=== PATIENT | female | born 1975 | race Caucasian/White ===

== ENCOUNTER → 2020-06-29 14:33 | Outpatient (CLI) | payer OTHER, SELFPAY ==
--- NOTE | ~2020-06-29 | US_ITS ---
EXAMINATION: US thyroid DATE: 06/29/2020 14:49 INDICATION: Right thyroid nodule. TECHNIQUE: Multiple ultrasound images of the thyroid were obtained. COMPARISON: Ultrasound 03/31/2013, 08/05/13 FINDINGS: The right thyroid lobe measures 6.0 x 2.8 x 3.1 cm. The left thyroid lobe measures 3.5 x 1.2 x 1.1 c m. In the right thyroid lobe, there is a 3.3 cm mixed cystic and solid, isoechoic, usdky-qxxy-aido n odule with lobulated margin without echogenic foci (TI-RADS TR4), stable from 08/05/13, likely benign. In the left thyroid lobe, there is a 12 mm solid, isoechoic, kkski-thbi-nxvh nodule with ill-defined margin without echogenic foci (TR3), stable from 03/31/13. IMPRESSION: 1. Stable pulmonary nodules, likely benign. Reviewed, dictated and finalized at location A. [employer]
== END ==
PROVIDERS: Visit Provider Nurse Practitioner
DX: E04.2 Nontoxic multinodular goiter (principal)
CPT/HCPCS: 76536

== ENCOUNTER 2023-07-27 10:05 | Outpatient (CLI) | payer OTHER, SELFPAY ==
--- NOTE | ~2023-07-27 | US_ITS ---
Thyroid ultrasound. Clinical History: Thyroid nodule COMPARISON: 06/29/2020 Findings: Real-time sonography of the thyroid gland was performed. The right lobe measures 6.1 x 3.0 x 3.1 cm. The left lobe measures 4.2 x 1.5 x 1.2 cm. The isthmus is 2 mm in AP diameter. There is a 3.6 x 2.6 x 2.9 cm mixed solid and cystic nodule at the right midpole, unchanged. There is a probable 3 mm hypoechoic nodule at the left upper pole. Impression: No interval change in dominant mixed solid and cystic nodule at the right midpole. Small left thyroid lobe nodules are not as well-seen on the current exam, or else decreased. Reviewed, dictated and finalized at location . Impression: No interval change in dominant mixed solid and cystic nodule at the right midpo le. Small left thyroid lobe nodules are not as well-seen on the current exam, or el se decreased.
== END 2023-07-27 10:06 ==
PROVIDERS: PCP Nurse Practitioner; Visit Provider Nurse Practitioner
DX: E04.1 Nontoxic single thyroid nodule (principal)
CPT/HCPCS: 76536

== ENCOUNTER 2023-08-21 10:40 | Outpatient (CLI) | payer OTHER, SELFPAY | END 2023-08-21 10:41 | disposition home or self-care (01) | LOC: ANHAUDIO 10:41 | PROVIDERS: PCP Nurse Practitioner; Visit Provider Otolaryngology | DX: H90.3 Sensorineural hearing loss, bilateral (principal) | CPT/HCPCS: 92557; 92567 ==

== ENCOUNTER 2023-11-27 13:03 | Outpatient (CLI) | payer OTHER, SELFPAY ==
--- NOTE | ~2023-11-27 | MM_ITS ---
EXAMINATION: MM screening mirlande BI w abrahan HISTORY: Screening TECHNIQUE: Craniocaudal and mediolateral oblique 3-D tomosynthesis images were obtained and synthetic 2-D images were generated. CAD analysis was submitted and interpreted. COMPARISON: No prior mammogram is available for comparison at this institution. BREAST PARENCHYMAL COMPOSITION: Not dense: There are scattered areas of fibroglandular density. FINDINGS: There are bilateral asymmetries in the upper outer quadrants of both breasts. There are no suspicious calcifications or architectural distortion. IMPRESSION: 1. Bilateral breast asymmetries. 2. Additional mammographic views and possible breast ultrasound are recommended. BI-RADS Category 0: Incomplete: Needs additional imaging evaluation. Reviewed, dictated and finalized at location B. IMPRESSION: 1. Bilateral breast asymmetries. 2. Additional mammographic views and possible breast ultrasound are recommended . BI-RADS Category 0: Incomplete: Needs additional imaging evaluation.
== END 2023-11-27 13:04 ==
LOC: MICIMG 13:04
PROVIDERS: PCP Nurse Practitioner; Visit Provider Nurse Practitioner
DX: Z12.31 Encounter for screening mammogram for malignant neoplasm of breast (principal); N64.89 Other specified disorders of breast
CPT/HCPCS: 77063; 77067

== ENCOUNTER 2023-12-24 08:15 | Outpatient (CLI) | payer OTHER, SELFPAY ==
--- NOTE | ~2023-12-24 | MMUS_ITS ---
EXAMINATION: MM diagnostic mirlande BI w abrahan, US breast BI limited HISTORY: Follow-up bilateral breast asymmetries TECHNIQUE: Additional 3-D tomosynthesis images of the breasts were performed and synthetic 2-D images were generated. CAD analysis was submitted and interpreted. High resolution limited bilateral breast ultrasound was performed. COMPARISON: Comparison to multiple prior studies sequentially, with oldest reviewed study dated 01/25. BREAST PARENCHYMAL COMPOSITION: Dense: The breasts are heterogeneously dense, which may obscure small masses FINDINGS: MAMMOGRAPHIC FINDINGS: There is a mass in the upper outer quadrant of the right breast, middle third. This is partially obsc ured by dense fibroglandular tissue. There is a possible nearby mass which is low density slightly mo re anterior. The left breast asymmetry is less dense with spot compression views with intervening fat between the breast parenchyma on spot compression views, consistent with fibroglandular tissue. ULTRASOUND: Limited right breast ultrasound: At 10:00, 5 cm from the nipple there is an irregular shaped hypoecho ic mass measuring 1.2 x .9 x 1.1 cm without significant posterior features or internal vascularity. A t 12:00 near the nipple there is an oval hypoechoic 8mm mass with some irregular margins. No posterio r features. There is internal vascularity. Limited left breast ultrasound: Normal heterogeneous echotexture without focal solid or cystic mass. IMPRESSION: 1. Abnormal solid right breast masses located at 10:00, 5 cm from the nipple measuring 1.2 cm and at 12:00 near the nipple measuring 8 mm. No evidence for malignancy in the left breast. 2. Ultrasound-guided right breast biopsies recommended. BI-RADS category 4, suspicious findings. Reviewed, dictated and finalized at location B. IMPRESSION: 1. Abnormal solid right breast masses located at 10:00, 5 cm from the nipple me asuring 1.2 cm and at 12:00 near the nipple measuring 8 mm. No evidence for mal ignancy in the left breast. 2. Ultrasound-guided right breast biopsies recommended. BI-RADS category 4, suspicious findings.
== END 2023-12-24 08:16 ==
LOC: MICIMG 08:16
PROVIDERS: PCP Family Medicine; Visit Provider Obstetrics & Gynecology Gynecology
DX: R92.8 Other abnormal and inconclusive findings on diagnostic imaging of breast (principal); N63.11 Unspecified lump in the right breast, upper outer quadrant
CPT/HCPCS: 76642; 77062; 77066; G0279

== ENCOUNTER 2024-01-01 06:54 | Outpatient (CLI) | payer OTHER, SELFPAY ==
--- NOTE | ~2024-01-01 | XR_ITS ---
Left Shoulder Technique: AP and axillary views were obtained. Clinical History: Pain Findings: No fracture or dislocation is seen. Osseous alignment is anatomic. Portable prominent bone island of the proximal humerus. The glenohumeral and acromioclavicular joint spaces are preserved. So ft tissues are unremarkable. Impression: No acute abnormality. Probable prominent bone island at the proximal humerus. Reviewed, dictated and finalized at location . Impression: No acute abnormality. Probable prominent bone island at the proximal humerus.
--- NOTE | ~2024-01-01 | XR_ITS ---
Cervical Spine: AP, lateral, open-mouth views Clinical History: Pain Findings: There is mild reversal of normal cervical lordosis. The vertebral bodies and posterior trino ments appear intact. There is moderate degenerative disc narrowing at C4-C5 and C5-C6. Pre-vertebral soft tissues are unremarkable. Impression: Moderate degenerative disc narrowing at C4-C5 and C5-C6, with mild reversal of the normal cervical lo rdosis. Reviewed, dictated and finalized at [facility]. Impression: Moderate degenerative disc narrowing at C4-C5 and C5-C6, with mild reversal of the normal cervical lordosis.
== END 2024-01-01 06:55 | disposition home or self-care (01) ==
PROVIDERS: PCP Family Medicine; Visit Provider Student in an Organized Health Care Education/Training Program
DX: M48.02 Spinal stenosis, cervical region (principal); M25.512 Pain in left shoulder
CPT/HCPCS: 72040; 73030

== ENCOUNTER 2024-02-11 07:37 | Outpatient (CLI) | payer OTHER, SELFPAY ==
--- NOTE | ~2024-02-11 | MMUS_ITS ---
MM post biopsy diagnostic RT, US breast bx add lesion RT, US breast biopsy RT w image EXAMINATION: US GUIDED NEEDLE BIOPSY WITH VACUUM ASSISTANCE DATE: 02/11/2024 10:32 CDT INDICATION: Right breast masses seen on prior examination. Ultrasound-guided core biopsy is requeste d to evaluate for malignancy. BREAST PARENCHYMAL COMPOSITION: Dense: The breasts are heterogeneously dense, which may obscure small masses TECHNIQUE AND FINDINGS: The risks and potential benefits of the procedure were discussed with the patient, and written inform ed consent was obtained. After sterile preparation of the right breast, 1% lidocaine was utilized fo r local anesthesia. 1% lidocaine with epinephrine was used for deep anesthesia. Masses in the right breast were localized at 10:00, 5 cm from the nipple and 12:00 near the nipple. S eparate biopsies were performed for age as follows: A 10G vacuum-assisted biopsy gun needle was advan shikha through to the outer edge of the region of interest from a superior approach utilizing sonographi c guidance. A total of for tissue core samples for H mass were obtained through the lesion. An Inra d tissue marker clip was then placed at the biopsy site. Hemostasis was achieved. The patient tolerated procedure well and there was no evidence of immediate complication. The patien t was given verbal instructions partly is from the department. Right breast mammograms to document t issue marker clip placement. The tissue samples were submitted to surgical pathology for histologic a nalysis. IMPRESSION: 1. Successful ultrasound-guided vacuum-assisted biopsy of right breast mass with post procedure mamm ogram for marker placement. Please refer to pathology report for histologic analysis. Reviewed, dictated and finalized at location B. IMPRESSION: 1. Successful ultrasound-guided vacuum-assisted biopsy of right breast mass wi th post procedure mammogram for marker placement. Please refer to pathology rep ort for histologic analysis. IMPRESSION: 1. Successful ultrasound-guided vacuum-assisted biopsy of right breast mass wi th post procedure mammogram for marker placement. Please refer to pathology rep ort for histologic analysis. IMPRESSION: 1. Successful ultrasound-guided vacuum-assisted biopsy of right breast mass wi post procedure mammogram for marker placement. Please refer to pathology rep ort for histologic analysis.
== END 2024-02-11 07:38 | disposition home or self-care (01) ==
PROVIDERS: PCP Family Medicine; Visit Provider Surgery
DX: R92.0 Mammographic microcalcification found on diagnostic imaging of breast (principal); N63.11 Unspecified lump in the right breast, upper outer quadrant; N60.11 Diffuse cystic mastopathy of right breast
CPT/HCPCS: 19083; 19084; 77065; 88305; A4648

== ENCOUNTER 2024-06-06 07:30 | Outpatient (CLI) | payer OTHER, SELFPAY ==
--- NOTE | ~2024-06-06 | MR_ITS ---
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 TECHNIQUE: MRI of the breasts perform using standard protocol pre-and post IV contrast with the follo wing sequences: Axial T2 STIR, axial T1, axial vibrant T1 with fat suppression precontrast and multip hasic postcontrast. COMPARISON: Comparison to multiple prior studies sequentially, with oldest reviewed study dated 05/2023. FINDINGS: Right breast: The breasts are heterogeneously dense. There are no abnormalities on the precontrast se quences. There is moderate background parenchymal enhancement. In the upper outer quadrant of the rig ht breast there is a heterogeneously enhancing mass measuring 1.4 x 1.2 x 1.1 cm with rapid washout k inetics. The mass is located at 10:00 anteriorly 5.4 cm from the nipple. In the lower outer quadrant of the right breast there is a 7 x 5 x 4 mm mass with rapid washout enhancement. This is located at 8 :00, middle third, 9.5 cm posterior to the nipple. In the upper inner quadrant of the right breast th ere is a 5 mm enhancing mass with rapid plateau enhancement. This mass is located at 11:00 anteriorly , 3.9 cm posterior to the nipple. No evidence of signal abnormalities in the axillary or internal mirlande isa node distributions. LEFT BREAST: The breasts are heterogeneously dense. No signal abnormalities on precontrast sequences. There is moderate background parenchymal enhancement. No enhancing lesions following contrast admi nistration. No areas of enhancement meeting threshold criteria on CAD analysis. No evidence of sig nal abnormalities in the axillary or internal mammary node distributions.] IMPRESSION: 1: Right breast: Multiple masses of the right breast, largest dominant mass measuring 1.4 cm in the upper outer quadrant anteriorly with rapid washout enhancement. The largest mass corresponds to the p reviously biopsied mass which was benign. The mass located in the upper inner quadrant of the right b reast measuring 5 mm corresponds corresponds to an additional biopsy-proven benign mass from biopsy p erformed 02/11/2024. The 7 mm mass in the lower outer quadrant of the right breast was not definitely visualized on prior examination. Follow-up diagnostic bilateral mammogram with possible additional u ltrasound recommended. 2: Left breast: Negative. No evidence of malignancy. BI-RADS CATEGORY 0 - INCOMPLETE STUDY, NEED ADDITIONAL IMAGING EVALUATION. Reviewed, dictated and finalized at location B. OR PROJECT LEADER/TEAM LEAD IMPRESSION: 1: Right breast: Multiple masses of the right breast, largest dominant mass me asuring 1.4 cm in the upper outer quadrant anteriorly with rapid washout enhanc ement. The largest mass corresponds to the previously biopsied mass which was b enign. The mass located in the upper inner quadrant of the right breast measuri ng 5 mm corresponds corresponds to an additional biopsy-proven benign mass from biopsy performed 02/11/2024. The 7 mm mass in the lower outer quadrant of the right breast was not definitely visualized on prior examination. Follow-up diag nostic bilateral mammogram with possible additional ultrasound recommended. 2: Left breast: Negative. No evidence of malignancy. BI-RADS CATEGORY 0 - INCOMPLETE STUDY, NEED ADDITIONAL IMAGING EVALUATION.
== END 2024-06-06 07:31 | disposition home or self-care (01) ==
PROVIDERS: PCP Family Medicine; Visit Provider Surgery
DX: N63.12 Unspecified lump in the right breast, upper inner quadrant (principal); N63.11 Unspecified lump in the right breast, upper outer quadrant; R92.333 Mammographic heterogeneous density, bilateral breasts; R92.8 Other abnormal and inconclusive findings on diagnostic imaging of breast
CPT/HCPCS: 77049; A9577; C8908

== ENCOUNTER 2024-06-22 07:55 | Outpatient (CLI) | payer OTHER, SELFPAY ==
--- NOTE | ~2024-06-22 | MMUS_ITS ---
EXAMINATION: MM diagnostic mirlande BI w abrahan, US breast RT limited HISTORY: Multiple masses seen on breast MRI TECHNIQUE: 3-D tomosynthesis images of the breasts were performed and synthetic 2-D images were gener ated. CAD analysis was submitted and interpreted. High resolution limited right breast ultrasound was performed. COMPARISON: Prior mammogram dated 12/24/2023, 11/27/2023, 03/08/2021. Prior breast MRI dated 06/06/2024. BREAST PARENCHYMAL COMPOSITION:Not Dense. There are scattered areas of fibroglandular density. FINDINGS: MAMMOGRAPHIC FINDINGS: Mammographic pattern of the breast is unchanged from prior exam. Stable upper, outer right breast mas s with associated biopsy clip. Additional biopsy clip present in the right subareolar region with tin y mass present. No mass lesion or distortion evident in the left breast. No suspicious parenchymal ca lcification. ULTRASOUND: No solid or cystic lesion seen in the lower, inner quadrant of the right breast. IMPRESSION: Stable mammographic pattern of the breasts. Stable biopsy-proven benign masses in the upper, outer r ight breast. No mammographic or sonographic correlate seen for the 7 mm mass seen on MR imaging at the lower, inne r right breast. Negative mammographic/sonographic evaluation should not preclude further workup of kim spicious MR detected mass. BI-RADS Category 2: Benign finding(s). Reviewed, dictated and finalized at [facility]. 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 Stable biopsy-proven benign masses in the upper, outer right breast. No mammographic or sonographic correlate seen for the 7 mm mass seen on MR imag ing at the lower, inner right breast. Negative mammographic/sonographic evaluat ion should not preclude further workup of suspicious MR detected mass. BI-RADS Category 2: Benign finding(s).
== END 2024-06-22 07:56 | disposition home or self-care (01) ==
LOC: MICIMG 07:56
PROVIDERS: PCP Family Medicine; Visit Provider Physician Assistant Surgical
DX: N63.11 Unspecified lump in the right breast, upper outer quadrant (principal); N63.15 Unspecified lump in the right breast, overlapping quadrants; R92.333 Mammographic heterogeneous density, bilateral breasts
CPT/HCPCS: 76642; 77062; 77066; G0279

== ENCOUNTER 2024-12-10 14:52 | Emergency (ER) | payer OTHER, SELFPAY ==
[2024-12-10 14:54] VITALS: BP 195/128; PULSE 103; RESP 20; TEMP 36.5; O2SAT 100
--- OUTSIDE RECORDS SUMMARY | 2024-12-10 14:55 | XMS_ITS | Continuity of Care Document ---
Author Organization [employer] [place] Address [address] [place] [address] Phone Care Team Providers Care Supervisor Slashing Department Name Role Phone Katja PT, DPT, Geni Unavailable Unavaila ble Procedures Procedure Date PT Re-evaluation Therapeutic Activities Neuromuscular Re-Ed Therapeutic Exercise Manual Therapy Therapeutic Activities Neuromuscular Re-Ed Therapeutic Exercise Manual Therapy Therapeutic Activities Neuromuscular Re-Ed Therapeutic Exercise Manual Therapy Therapeutic Activities Neuromuscular Re-Ed Therapeutic Exercise Therapeutic Activities Neuromuscular Re-Ed Therapeutic Exercise Manual Therapy Therapeutic Activities Neuromuscular Re-Ed Therapeutic Exercise Manual Therapy Progress Note Therapeutic Activities Neuromuscular Re-Ed Therapeutic Exercise Manual Therapy Therapeutic Activities Neuromuscular Re-Ed Therapeutic Exercise Manual Therapy Therapeutic Activities Neuromuscular Re-Ed Therapeutic Exercise Manual Therapy Therapeutic Activities Neuromuscular Re-Ed Therapeutic Exercise Manual Therapy Therapeutic Activities Neuromuscular Re-Ed Therapeutic Exercise Manual Therapy Hot or Cold Pack Therapeutic Activities Neuromuscular Re-Ed Therapeutic Exercise Manual Therapy Hot or Cold Pack Therapeutic Activities Neuromuscular Re-Ed Therapeutic Exercise Manual Therapy Hot or Cold Pack PT Evaluation Moderate Complexity Therapeutic Activities Neuromuscular Re-Ed Therapeutic Exercise Manual Therapy Advance Directives Directive Yes / No Effective Date File Name No Information Encounters Encounter Description Practice Location Reason(s) For Visit Diagnoses Date Provider Providers Copied on Encounter [facility] [place] [address], [id number], tel:[phone] [place] No Information 4 Hightower Geni. . Referring Provider: [address], [place], [address]. tel:[phone] [facility], [place], [place], [id number], tel:[phone] [place] No Information 4 Hightower Geni. . Referring Provider: [address], [place], [address]. tel:[phone] [facility], [place], [place], [id number], [place] tel:[phone] [place] No Information 4 Hightower Geni. . Referring Provider: [address], [place], [address]. tel:[phone] [address] [place], [place] [address] [address], [place], [place], [id number], tel:[phone] [place] No Information Oct-1 4-202 4 Hightower Geni. . Referring Provider: [address], [place], [address]. tel:[phone] [place] [address], [place], [place], [id number], tel:[phone] [place] No Information Jan-1 1-202 4 Hightower Geni. . Referring Provider: [address], [place], [address]. tel:[phone] [place] [address], [place], [place], [id number], tel:[phone] [place] No Information Oct-0 7-202 4 Hightower Geni. . Referring Provider: [address], [place], [address]. tel:[phone] [place] [address] [place] [address], [place], [place], [id number], [place] tel:[phone] [place] No Information Oct-0 4-202 4 Hightower Geni. . Referring Provider: [address], [place], [address]. tel:[phone] [place] [address], [id number], [place] tel:[phone] [place] No Information Sep-3 0-202 4 Hightower Geni. . Referring Provider: [address], [place], [address]. tel:[phone] [place] [address] [place] [address], [place], [place], [id number], [place] tel:[phone] [place] No Information Sep-2 7-202 4 Hightower Geni. . Referring Provider: [address], [place], [address]. tel:[phone] [place], [place] [address], [place], [place], [id number], tel:[phone] [place] No Information Sep-2 3- 4 Hightowre Geni. . Referring Provider: [address], [place], [address]. tel:[phone] [facility] [address] [address], [place], [place], [id number], tel:[phone] [place] No Information Sep-2 0-202 4 Hightower Geni. . Referring Provider: [address], [place], [address]. tel:[phone] [facility] [address] [address], [place], [place], [id number], tel:[phone] [place] No Information Sep-1 6 4 Heladio Abram. . Referring Provider: [address], [place], [address]. tel:[phone] [facility] [address] [address], [place], [place], [id number], [place] tel:[phone] [place] No Information Sep-1 - 4 Hightower Geni. . Referring Provider: [address], [place], [address]. tel:[phone] [facility] [address], [id number], tel:[phone] [place] No Information Sep-0 4 Hightower Geni. . Referring Provider: [address], [place], [address]. tel:[phone] Family History Family Member Type Diagnosis Age At Onset No Information Payers Payer name Insurance type Covered green party ID madhu euceda(s) [facility] [id number] Social History Type Description Quantity Date Captured Comments Alcohol Use Details Unknown Caffeine Use Details Unknown Tobacco Use Status Current non-smoker Smoking Status Never smoker Non-Smoking Tobacco Use Details : No Details Available : No Details Available Sex Female Chief Complaint And Reason For Visit No Information Reason For Referral Reason For Referral No Information History Of Present Illness Encounter Date Complaint History Of Prese nt Illness No Information Functional Status Date Functional Assessmen t No Information Instructions Date Instruction Additional Infor mation No Information Assessments Type Assessment Date No Information Patient Care Teams Name Effective Dates (start - stop) Status Members No Information
[2024-12-10 15:01] VITALS: BP 175/90; PULSE 95; RESP 13; O2SAT 99
[2024-12-10 15:21] VITALS: BP 152/80; PULSE 96; RESP 18; O2SAT 97
--- OUTSIDE RECORDS SUMMARY | 2024-12-10 15:30 | XMS_ITS | Continuity of Care Document ---
Author Organization [facility] Address [address] [facility] [address] [place] [address] Phone Care Team Providers Care Fruit Bar Maker Name Role Phone Katja PT, DPT, Geni [...] Pack Therapeutic Activities Neuromuscular Re-Ed Therapeutic Exercise Hot or Cold Pack Manual Therapy PT Evaluation Moderate Complexity Therapeutic Activities Neuromuscular Re-Ed Therapeutic Exercise Manual Therapy Advance Directives Directive Yes / No Effective Date File Name No Information Encounters Encounter Description Practice Location Reason(s) For Visit Diagnoses Date Provider Providers Copied on Encounter [facility] [place] [address], [id number], tel:[phone] Boomer No Information 4 Hightower Geni. . Referring Provider: Mel[address], [place], [address]. tel:[phone] [facility], [place], [place], [id number], tel:[phone] Boomer No Information 4 Hightower Geni. . Referring Provider: [address], [place], [address]. tel:[phone] [facility], [place], [place], [id number], [place] tel:[phone] Boomer No Information 4 Hightower Geni. . Referring Provider: [address], [place], [address]. tel:[phone] [address] [place], [place] [address] [address], [place], [place], [id number], tel:[phone] Boomer No Information Oct-1 4-202 4 [facility]ightower Geni. . Referring Provider: [address], [place], [address]. tel:[phone] [place] [address], [place], [place], [id number], tel:[phone] Boomer No Information Jan-1 1-202 4 Hightower Geni. . Referring Provider: [address], [place], [address]. tel:[phone] [place] [address], [place], [id number], tel:[phone] Boomer No Information Oct-0 7-202 4 Hightower Geni. . Referring Provider: [address], [place], [address]. tel:[phone] [place] [address] [place] [address], [place], [place], [id number], [place] tel:[phone] Boomer No Information Oct-0 4-202 4 Hightower Geni. . Referring Provider: [address], [place], [address]. tel:[phone] [place] [address], [id number], [place] tel:[phone] Boomer No Information Sep-3 0-202 4 Hightower Geni. . Referring Provider: [address], [place], [address]. tel:[phone] [place] [address] [place] [address], [place], [place], [id number], [place] tel:[phone] Boomer No Information Sep-2 7-202 4 Hightower Geni. . Referring Provider: [address], [place], [address]. tel:[phone] [place], [place] [address], [place], [place], [id number], tel:[phone] Boomer No Information Sep-2 3- 4 Hightower Geni. . Referring Provider: [address], [place], [address]. tel:[phone] [facility] [address] [address], [place], [place], [id number], tel:[phone] Boomer No Information Sep-2 0-202 4 Hightower Geni. . Referring Provider: [address], [place], [address]. tel:[phone] [facility] [address] [address], [place], [place], [id number], tel:[phone] Boomer No Information Sep-1 6 4 Heladio Abram. . Referring Provider: [address], [place], [address]. tel:[phone] [facility] [address] [address], [place], [place], [id number], [place] tel:[phone] Boomer No Information Sep-1 - 4 Hightower Geni. . Referring Provider: [address], [place], [address]. tel:[phone] [facility] [address], [id number], tel:[phone] Boomer No Information Sep-0 4 Hightower Geni. . Referring Provider: [address], [place], [address]. tel:[phone] Family History Family Member Type Diagnosis Age At Onset No Information Payers Payer name Insurance type Covered alliance party ID madhu euceda(s) [facility] [id number] Social History Type Description Quantity Date Captured [...]
--- NOTE | 2024-12-10 15:31 | ED_ITS ---
HPI - General Adult General Chief complaint: Unspecified Stated complaint: HTN Time Seen by Provider: 12/10/24 15:06 Source: patient Mode of arrival: ambulatory Limitations: no limitations History of Present Illness HPI narrative: Patient is a 49-year-old female who presents the ED with report of elevated blood pressure. Patient reports over the last several days, her blood pressure has been elevated. She has had readings in the 170s to 180 systolic, but more consistently over the past couple of days between 140s to 160 systolic at home. She denies previous history of hypertension. States she last saw her doctor a few months ago and her blood pressure was normal at that time. Patient otherwise states she feels fine. Contacted her primary care doctor and was referred to the ED for further evaluation. Denies dizziness, lightheadedness, headache, vision changes, chest pain, shortness of breath. Related Data Home Medications ?Medication ?Instructions ?Recorded ?Confirmed ?Last Taken ?Type fluoxetine 20 mg capsule (Prozac) 20 mg PO DAILY 07/27/23 12/30/23 Unknown History Allergies Allergy/AdvReac Type Severity Reaction Status Date / Time No Known Allergies Allergy Verified 12/10/24 14:52 Review of Systems Review of Systems: All systems reviewed & are unremarkable except as noted in HPI. All systems reviewed & are unremarkable except as noted in HPI and below PMFSH Past Medical History Medical History Thyroid Nodule US done 2020, passed biopsies negative Tobacco abuse Quit 2021 Family History Family History Sibling Family history of diabetes mellitus in first degree relative Mother Family history of malignant neoplasm of breast in first degree relative Grandparent Diabetes mellitus Other Family history of mental disorder Social History Social History Smoking packs per day: 1 Smoking cigarettes per day: 20.0 Years smoked: 20 Smoking pack-years: 20.00 Smoking status: Former smoker Tobacco type: cigarettes Second hand tobacco smoke exposure: Yes Smoking end date: 12/29/21 Alcohol intake: current Alcohol use details: socially; seldom Substance use: never Substance use type: does not use Lack of Transportation: No Lack of Food: Never True Current Housing: I Have Housing Concerned About Future Housing: No Difficulty Paying Gas/Electric Bills: No Difficulty Paying for Meds: No Currently Unemployed: No Education: Associate Degree Difficulty w/ Childcare or Family Care: No Living arrangements: with family Occupation/Education: occupation Gender identity (if verbalized by the patient): Female Spiritual care concerns: No Agree to blood products: Yes Exam Narrative: GENERAL: Well appearing, well-nourished, non-toxic, in no acute distress. HEAD: Normocephalic, atraumatic. RESPIRATORY: Airway patent, respirations nonlabored. Clear to auscultation bilaterally, no rales, rhonchi, wheezing. CARDIOVASCULAR: Regular rate and rhythm without murmurs, rubs, or gallops. MUSCULOSKELETAL: Moves all extremities. No gross deformities. SKIN: Warm, dry, normal color. NEURO: A&O X3. Speech clear. Cranial nerves II-XII grossly intact. Steady gait. No ataxic movements. PSYCHIATRIC: Appropriate mood and affect. Normal interaction. Course Vital Signs Vital signs: Vital Signs Temperature 97.7 F 12/10/24 14:54 Pulse Rate 103 H 12/10/24 14:54 Respiratory Rate 20 12/10/24 14:54 Blood Pressure 195/128 H 12/10/24 14:54 Pulse Oximetry 100 12/10/24 14:54 Oxygen Delivery Room Air 12/10/24 14:54 Temperature 97.7 F 12/10/24 14:54 Pulse Rate 96 12/10/24 15:21 Respiratory Rate 18 12/10/24 15:21 Blood Pressure 152/80 H 12/10/24 15:21 Pulse Oximetry 97 12/10/24 15:21 Oxygen Delivery Room Air 12/10/24 14:54 Medical Decision Making MDM Narrative Medical decision making narrative: BP upon arrival 195/128. Quickly improved to 170s and down to 140s w/o intervention. Asymptomatic hypertension. Patient is denying any red flag symptoms. Denying any symptoms at all. She did show me her records from home and her blood pressures over the last several days, have been consistently over 140 systolic. Discussed ACEP and AAFP guidelines for asymptomatic hypertension, no further testing or medications required at this time. Advised patient to continue to monitor blood pressures at home and keep recording of the numbers. Advised if she continues to have blood pressures consistently over 140 systolic, to begin the amlodipine that I will prescribe for her. Advised patient to follow-up very closely with primary care doctor for continued management. Discussed strict return precautions. Patient in agreement with plan. She feels comfortable discharge home. Discharged in stable condition. Blood pressure in the 140s at time of D/C. Medical Records Medical records reviewed: Yes I reviewed the external patient's medical records. Vital Signs Vital Signs: Vital Signs Temperature 97.7 F 12/10/24 14:54 Pulse Rate 103 H 12/10/24 14:54 Respiratory Rate 20 12/10/24 14:54 Blood Pressure 195/128 H 12/10/24 14:54 Pulse Oximetry 100 12/10/24 14:54 Oxygen Delivery Room Air 12/10/24 14:54 Temperature 97.7 F 12/10/24 14:54 Pulse Rate 96 12/10/24 15:21 Respiratory Rate 18 12/10/24 15:21 Blood Pressure 152/80 H 12/10/24 15:21 Pulse Oximetry 97 12/10/24 15:21 Oxygen Delivery Room Air 12/10/24 14:54 Discharge Plan Discharge Clinical Impression: Asymptomatic hypertension Patient Disposition: Home Condition: Stable Instructions: Antibiotic Form, Chronic Hypertension (ED), Hypertension (ED) Additional Instructions: Continue to monitor blood pressures at home and keep recording of the numbers. If your top blood pressure number is consistently above 140, it is recommended to start the medication prescribed to you. Follow up closely with your primary care doctor for further evaluation and continued medication management. Return to the ED if you experience uncontrolled blood pressures (persistently > 180s top number), especially if associated with other symptoms, including headache, vision changes, dizziness, lightheadedness, chest pain, shortness of breath, syncope, or any other symptoms of concern. Patient Language: Danish Prescriptions: New amlodipine 5 mg tablet 5 mg PO DAILY Qty: 30 0RF No Action fluoxetine [Prozac] 20 mg capsule 20 mg PO DAILY Rx Instructions: Pt. takes 30mg daily azelastine 137 mcg (0.1 %) spray,non-aerosol 1 spray intranasal Q12H Qty: 90 2RF Rx Instructions: administer into each nostril meloxicam 15 mg tablet 15 mg PO DAILY Qty: 30 2RF Follow-up/Referrals: Tayler Toure MD [Primary Care Provider] - Time of Disposition: 15:56
== END 2024-12-10 16:15 | disposition home or self-care (01) ==
PROVIDERS: Emergency Provider Physician Assistant; PCP Family Medicine
DX: I10 Essential (primary) hypertension (principal); Z87.891 Personal history of nicotine dependence
CPT/HCPCS: 99283

== ENCOUNTER 2025-02-24 13:59 | Outpatient (CLI) | payer OTHER, SELFPAY ==
--- NOTE | ~2025-02-24 | MR_ITS ---
MR breast BI wo/w con INDICATION:50 year old female presents for follow-up of probably benign right breast lesion. Prior MRI breast completed on 06/06/2024 showed multiple masses in the right breast. 2 of the masses has been biopsied with benign pathology, however a 7 mm mass in the lower outer right breast seen for the first time was followed up with diagnostic mammogram and ultrasound which did not show correlating lesion. TECHNIQUE: MRI of the breasts perform using standard protocol pre-and post IV contrast with the following sequences: Axial T2 STIR, axial T1, axial vibrant T1 with fat suppression precontrast and multiphasic postcontrast. 16 cc MultiHance administered intravenously. COMPARISON: Mammogram and ultrasound dated 06/22/2024. FINDINGS: There is Heterogeneous fibroglandular tissue that demonstrates Mild and is Symmetric. Right breast: Previously reported enhancing lesion in the lower outer at posterior depth redemonstrated is unchanged and demonstrate benign features with several cystic changes around it. Most likely these represent fibrocystic change. Previously reported dominant mass in the superior lateral at middle depth containing nonenhancing internal septation and known biopsy-proven to represent a benign lesion is unchanged. There are no abnormalities on the precontrast sequences. There is minimal background parenchymal enhancement. No other enhancing lesions following contrast administration. No areas of enhancement meeting threshold criteria on CAD analysis. Nipple areolar complex is normal in appearance. No evidence of signal abnormalities in the axillary or internal mammary node distributions. LEFT BREAST: No signal abnormalities on precontrast sequences. There is mild background parenchymal enhancement. No enhancing lesions following contrast administration. No areas of enhancement meeting threshold criteria on CAD analysis. The nipple areolar complex is normal in appearance. No evidence of signal abnormalities in the axillary or internal mammary node distributions.] IMPRESSION: 1: Right breast: Stable benign findings. 2. Left breast: Negative. No evidence of malignancy. 3. The chest wall and axillary portion of the examination unremarkable. RECOMMENDATION: Follow-up MRI may be useful for supplementing mammographic evaluation as clinically indicated. Annual screening mammography due May 2025. BI-RADS Category 2: Benign finding(s). Reviewed, dictated and finalized at location B. IT INTERN IMPRESSION: 1: Right breast: Stable benign findings. 2. Left breast: Negative. No evidence of malignancy. 3. The chest wall and axillary portion of the examination unremarkable. RECOMMENDATION: Follow-up MRI may be useful for supplementing mammographic evaluation as clinic ally indicated. Annual screening mammography due May 2025. BI-RADS Category 2: Benign finding(s).
== END 2025-02-24 14:00 | disposition home or self-care (01) ==
PROVIDERS: PCP Family Medicine; Visit Provider Surgery
DX: R92.333 Mammographic heterogeneous density, bilateral breasts (principal); R92.8 Other abnormal and inconclusive findings on diagnostic imaging of breast
CPT/HCPCS: 77049; A9577; C8908